=== PATIENT | female | born 1990 | race Caucasian/White ===

== ENCOUNTER 2022-11-16 00:55 | Emergency (ER) | payer OTHER ==
[2022-11-16 01:11] VITALS: BP 124/80; PULSE 81; RESP 16; TEMP 99; BMI 21.4
== END 2022-11-16 02:16 | disposition home or self-care (01) ==
LOC: FER 00:55
DX: S80.02XA Contusion of left knee, initial encounter (principal); S80.811A Abrasion, right lower leg, initial encounter; S80.812A Abrasion, left lower leg, initial encounter; V43.62XA Car passenger injured in collision with other type car in traffic accident, initial encounter
CPT/HCPCS: 73560-TC-LT-FY; 99283-25

== ENCOUNTER 2024-01-22 07:04 | Emergency (ER) | payer OTHER ==
[2024-01-22 07:10] VITALS: BP 124/83; PULSE 80; RESP 18; TEMP 98.9; BMI 22.6
[2024-01-22 08:13] LABS: HEMATOCRIT 40.9 % (32.4-45.2); MCH 28.3 pg (25.7-33.7); MCHC 31.7 g/dl (32.0-36.0); MEAN CELL VOLUME 89.2 fl (80-96); MEAN PLT VOLUME 10.3 fl (7.5-11.1); RBC 4.58 10^6/uL (3.60-5.2); RDW 14.9 % (11.6-15.6)
[2024-01-22 08:22] LABS: ALBUMIN 4.6 g/dl (3.4-5.0); BILIRUBIN,TOTAL 0.5 mg/dl (0.2-1); CALCIUM 9.7 mg/dl (8.5-10.1); CREATININE 0.8 mg/dl (0.6-1.3); PHOSPHOROUS 3.3 (2.5-4.9); POTASSIUM 4.2 mmol/L (3.5-5.1); TOT PROT 7.2 g/dl (6.4-8.2)
[2024-01-22 08:27] LABS: PLATELET ESTIMATE ADEQUATE
[2024-01-22 11:53] LABS: HIV INTERPRETATION NEGATIVE (NEGATIVE)
== END 2024-01-22 08:23 | disposition home or self-care (01) ==
LOC: FER 07:04
DX: Z77.21 Contact with and (suspected) exposure to potentially hazardous body fluids (principal)
CPT/HCPCS: 36415; 80053; 82465; 82977; 84100; 85025; 86704; 86803; 87340; 87389; 87517; 99283-25